=== PATIENT | female | born 1965 | race Caucasian/White ===

== ENCOUNTER → 2017-01-13 | Outpatient (CLI) | payer BC ==
[2017-01-13 13:06] LABS: Basophils % (A) 0 %; CH 25.3; Eosinophils # (A) 0.3 k/uL (0-0.7); Eosinophils % (A) 4 %; HCT 40.8 % (34.0-46.0); HDW 2.65; HGB 12.6 gm/dL (11.4-16.0); Hypochromasia Marked; Luc # (Auto) 0.12; Luc % (Auto) 2; Lymphocytes # (A) 1.8 k/uL (1.0-4.8); Lymphocytes % (A) 29 %; MCH 26.1 pg (25.0-35.0); MCHC 30.9 g/dL (31.0-37.0); MCV 84.6 fL (80.0-100.0); Mean Platelet Volume 6.2; Monocytes # (A) 0.3 k/uL (0-1.0); Monocytes % (A) 5 %; Neutrophils # (A) 3.7 k/uL (1.3-7.7); Neutrophils % (A) 60 %; RBC 4.82 m/uL (3.80-5.40); RDW 14.5 % (11.5-15.5); WBC 6.1 k/uL (3.8-10.6); WBC (Perox) 6.33
[2017-01-13 13:24] LABS: ALT 36 U/L (9-52); AST 18 U/L (14-36); Alkaline Phosphatase 92 U/L (38-126); Anion Gap 10 mmol/L; Blood Urea Nitrogen 10 mg/dL (7-17); Calcium 9.1 mg/dL (8.4-10.2); Carbon Dioxide 22 mmol/L (22-30); Chloride 108 mmol/L (98-107); Creatine Kinase 39 U/L (30-135); Glucose 91 mg/dL (74-99); Non-African American GFR(MDRD) >60 (>60 ml/min/1.73 sqM); Potassium 4.4 mmol/L (3.5-5.1); Sodium 140 mmol/L (137-145); Total Bilirubin 0.3 mg/dL (0.2-1.3); Total Protein 6.3 g/dL (6.3-8.2)
== END | disposition home or self-care (01) ==
LOC: LABWHC1 12:17
PROVIDERS: ATTEND Family Medicine
DX: R42 Dizziness and giddiness (principal); R00.2 Palpitations
CPT/HCPCS: 36415; 80053; 82550; 84439; 84443; 84484; 85025

== ENCOUNTER → 2017-01-15 | Outpatient (CLI) | payer BC ==
--- NOTE | 2017-01-15 11:22 | CT ---
EXAMINATION TYPE: CT brain wo con DATE OF EXAM: 01/15/2017 COMPARISON: NONE HISTORY: R42 dizziness Unenhanced CT of the brain was performed. The ventricles, basal cisterns and sulci overlying the cerebral convexities demonstrate mild enlargem ent. There is no evidence for intracranial hemorrhage or sulcal effacement. There is decreased attenuation about the periventricular white matter and deep white matter of both c erebral hemispheres, compatible with chronic small vessel ischemia. Differential diagnosis does inclu de demyelination. No mass effects are seen.No midline shift. Osseous calvarium is intact. If symptoms persist consider MRI. IMPRESSION: 1. Age related atrophic and chronic small vessel ischemic change without acute intracranial process s een at this time.
== END | disposition home or self-care (01) ==
LOC: RADCTMAIN 10:46
PROVIDERS: ATTEND Family Medicine
DX: I67.82 Cerebral ischemia (principal); G31.9 Degenerative disease of nervous system, unspecified
CPT/HCPCS: 70450

== ENCOUNTER → 2019-02-18 | Outpatient (CLI) | payer BC ==
--- NOTE | 2019-02-18 08:58 | US ---
EXAMINATION TYPE: US duplex aorta DATE OF EXAM: 02/18/2019 COMPARISON: NONE CLINICAL HISTORY: I71.2 THORACIC AORTIC ANEURYSM. HTN, no high cholesterol EXAM MEASUREMENTS: Abdominal Aorta: Proximal: 2.1 x 2.6 cm Mid: 1.7 x 1.9 cm Distal: 1.6 x 1.7 cm Bifurcation: Right- 1.0 x 1.2 cm Left- 1.1 x 0.9 cm No AAA visualized. Abdominal aorta visualized through bifurcation. IMPRESSION: No ultrasound evidence for AAA.
== END | disposition home or self-care (01) ==
LOC: RADUSWWP 07:35
PROVIDERS: ATTEND Family Medicine
DX: I71.2 Thoracic aortic aneurysm, without rupture (principal)
CPT/HCPCS: 93979

== ENCOUNTER → 2022-07-13 | Outpatient (CLI) | payer BC ==
--- NOTE | 2022-07-13 13:17 | CT ---
CT CHEST FOR PULMONARY EMBOLISM. EXAMINATION TYPE: CT angio chest DATE OF EXAM: 07/13/2022 INDICATION: PE CT DLP: 542.60 mGycm, Automated exposure control for dose reduction was used. CONTRAST: Patient injected with 100 ml mL of Isovue 370. COMPARISON: 07/09/2015 TECHNIQUE: CT of the chest is performed on a spiral scan at 2 mm thick sections. Study is performed with intravenous contrast timed for evaluation for pulmonary embolism. This will limit additional po rtions of the evaluation. 3-D MIP images reconstructed by the technologist are reviewed on the compu ter in the coronal and sagittal planes. FINDINGS: No persistent filling defects are evident to suggest an acute pulmonary embolism. No mediastinal or hilar adenopathy enlarged by CT criteria is evident. The ascending aorta diameter at the level of the main pulmonary artery is 4.5 cm. The main pulmonary artery diameter at the bifur cation is 3.5 cm. Lung windows are clear. Limited CT section through the upper abdomen are unremarkable. IMPRESSIONS: 1. No acute pulmonary embolism. 2. Ascending thoracic aortic aneurysm of 4.5 cm.
== END | disposition home or self-care (01) ==
LOC: RADCTMAIN 11:48
PROVIDERS: ATTEND Internal Medicine Critical Care Medicine
DX: I71.21 Aneurysm of the ascending aorta, without rupture (principal)
CPT/HCPCS: 71275; Q9967

== ENCOUNTER 2022-07-21 15:41 | Observation (INO) | payer BC ==
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
[2022-07-21 17:12] LABS: Basophils % (A) 0 %; Eosinophils # (A) 0.1 k/uL (0-0.7); Eosinophils % (A) 1 %; HCT 42.8 % (34.0-46.0); HGB 14.7 gm/dL (11.4-16.0); Lymphocytes # (A) 1.2 k/uL (1.0-4.8); Lymphocytes % (A) 14 %; MCH 30.4 pg (25.0-35.0); MCHC 34.3 g/dL (31.0-37.0); MCV 88.5 fL (80.0-100.0); Mean Platelet Volume 7.3; Monocytes # (A) 0.4 k/uL (0-1.0); Monocytes % (A) 4 %; Neutrophils # (A) 6.8 k/uL (1.3-7.7); Neutrophils % (A) 80 %; Platelet Count 194 k/uL (150-450); RBC 4.84 m/uL (3.80-5.40); RDW 13.5 % (11.5-15.5); WBC 8.5 k/uL (3.8-10.6)
[2022-07-21 17:46] LABS: Prothrombin Time 10.3 sec (9.0-12.0)
[2022-07-21 17:51] LABS: Partial Thromboplastin Time 21.5 sec (22.0-30.0)
[2022-07-21 17:52] LABS: VBG PH 7.42 (7.31-7.41)
[2022-07-21 18:16] LABS: ALT 44 U/L (4-34); African American GFR (CKD) >90 (>60 ml/min/1.73 sqM); Albumin 4.4 g/dL (3.5-5.0); Anion Gap 11 mmol/L; Blood Urea Nitrogen 20 mg/dL (7-17); Calcium 9.5 mg/dL (8.4-10.2); Carbon Dioxide 20 mmol/L (22-30); Chloride 108 mmol/L (98-107); Glucose 137 mg/dL (74-99); Non-African American GFR(CKD) >90 (>60 ml/min/1.73 sqM); Sodium 139 mmol/L (137-145); Total Bilirubin 0.6 mg/dL (0.2-1.3); Total Protein 7.1 g/dL (6.3-8.2)
[2022-07-21 18:25] LABS: AST 33 U/L (14-36); Alkaline Phosphatase 59 U/L (38-126); Potassium 4.1 mmol/L (3.5-5.1)
[2022-07-21] MEDS ORDERED: SODIUM CHLORIDE 0.9% 1,000 ML IV STA (18:29)
[2022-07-21] MEDS ORDERED: SODIUM CHLORIDE 0.9% 500 ML 500 ML IV STA (18:29)
--- NOTE | 2022-07-21 19:25 | XR ---
EXAMINATION TYPE: XR chest 2V DATE OF EXAM: 07/21/2022 COMPARISON: 06/16/2022 TECHNIQUE: PA and lateral views submitted. HISTORY: Shortness of breath FINDINGS: The lungs are clear and there is no pneumothorax, pleural effusion, or focal pneumonia. Heart size normal and no overt failure. Osseous structures demonstrate hypertrophic and degenerative changes of the spine. IMPRESSION: 1. No acute process.
[2022-07-21] MEDS ORDERED: ACETAMINOPHEN TAB 325 MG TAB PO PRN (19:38)
[2022-07-21] MEDS ORDERED: NALOXONE 0.4 MG/ML 1 ML VIAL IVP PRN (19:38)
[2022-07-21] MEDS ORDERED: IPRATROPIUM-ALBUTEROL 3 ML NEB INHALATION SCH (20:00)
[2022-07-21] MEDS ORDERED: NYSTATIN 100,000 UNIT/GM POWD 15 GM TOPICAL SCH (21:00)
[2022-07-21] MEDS: LOSARTAN 50 MG TAB PO SCH (21:04)
[2022-07-21] MEDS ORDERED: ALBUTEROL NEBULIZED 2.5 MG/3 ML INHALATION PRN (21:07)
[2022-07-21] MEDS ORDERED: IPRATROPIUM 0.5 MG/2.5 ML NEBU INHALATION PRN (21:09)
[2022-07-21] MEDS: IPRATROPIUM 0.5 MG/2.5 ML NEBU INHALATION SCH (21:22)
[2022-07-21] MEDS: ALBUTEROL NEBULIZED 2.5 MG/3 ML INHALATION SCH (21:22)
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
[2022-07-22] MEDS: HEPARIN SODIUM,PORCINE/PF 5,000 UNIT/0.5 ML SYRINGE SQ SCH ×4 (02:17→20:01)
[2022-07-22] MEDS: SYMBICORT 160-4.5 MCG INHALER INHALATION SCH ×2 (07:51→20:09)
[2022-07-22] MEDS: IPRATROPIUM 0.5 MG/2.5 ML NEBU INHALATION SCH ×3 (07:51→20:09)
[2022-07-22] MEDS: ALBUTEROL NEBULIZED 2.5 MG/3 ML INHALATION SCH ×4 (07:51→20:09)
[2022-07-22] MEDS ORDERED: IPRATROPIUM-ALBUTEROL 3 ML NEB INHALATION SCH (08:00)
[2022-07-22] MEDS ORDERED: NON FORMULARY DRUG (Fluticasone/Umeclidin/Vilanter [Trelegy Ellipta 200-62.5-25] 1 EACH Bl INHALATION SCH (08:00)
[2022-07-22] MEDS ORDERED: ENOXAPARIN 40 MG/0.4 ML SYRINGE SQ SCH (09:00)
[2022-07-22] MEDS: predniSONE 20 MG TAB PO SCH (09:18)
[2022-07-22 10:50] LABS: ABG Base Excess -0.8 mmol/L; ABG HCO3 23 mmol/L (21-25); ABG PCO2 32 mmHg (35-45); ABG PH 7.47 (7.35-7.45); ABG PO2 81 mmHg (83-108); ABG TCO2 24 mmol/L (19-24); Allen Test Performed? Yes
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
--- NOTE | 2022-07-22 13:17 | P.PN ---
Subjective Progress Note Date: 07/22/22 Hospital Course: 48-year-old female with a PMH of asthma and hypertension who presents to the emergency room with complaints of shortness of breath. EKG in the emergency room revealed sinus rhythm at 74 bpm with T-wave inversion in lead 3. Chest x-ray was unremarkable. Laboratory evaluation revealed WBC count 8.5, hemoglobin 14.7, platelets 194, sodium 139, potassium 4.1, chloride 108, CO2 20, BUN 20, creatinine 0.72, troponin less than 0.012, lactic acid 2.2. Patient admitted for possible acute asthma exacerbation versus other causes of dyspnea. Both pulmonology and cardiology has been consulted. Subjective: Patient seen and examined at bedside. No acute events overnight. Continues to feel dyspneic at rest. Denies any chest pain, palpitation, abdominal pain, nausea, vomiting, diarrhea, constipation, or urinary complaints. Pertinent positives and negatives as discussed above, a complete review of systems was performed and all other systems are negative. Vitals Signs Reviewed. General: nontoxic, no distress, appears at stated age Derm: warm, dry Head: atraumatic, normocephalic, symmetric Eyes: EOMI, no lid lag, anicteric sclera Mouth: no lip lesion, mucus membranes moist Cardiovascular: S1S2 reg, no murmur Lungs: CTA bilateral, no rhonchi, no rales , no accessory muscle use Abdominal: soft, nontender to palpation, no guarding, no appreciable organomeg benson Ext: no gross muscle atrophy, no edema, no contractures Neuro: CN II-XI grossly intact, no focal neuro deficits Psych: Alert, oriented, appropriate affect Data Reviewed Today: Pertinent Labs: Lactate 3.2, pH 7.47, pCO2 32 Assessment and Plan: Active: Dyspnea of unclear etiology History of asthma Lactic acidosis -Pulmonology note reviewed: Recommended cardiology consult with bubble study echocardiogram, 6 minute walk, ABG in room air -Cardiology note reviewed: Awaiting echo -Lactic acidosis likely type B in the setting of bronchodilators -On oral steroids 40 mg daily, continue bronchodilators Resolved: Chronic: Hypertension Morbid obesity DVT ppx: Subcu heparin Code status: Full code Anticipated discharge place: Pending clinical course Anticipated discharge time: Pending clinical course Objective - Vital Signs Vital signs: Vital Signs Temp 97.4 F L 07/22/22 07:00 Pulse 70 07/22/22 11:33 Resp 18 07/22/22 09:11 BP 111/72 07/22/22 07:00 Pulse Ox 99 07/22/22 07:51 FiO2 Intake & Output 07/21/22 07/22/22 07/22/22 18:59 06:59 18:59 Weight 138.346 kg 138.346 kg Other: # Voids 2 - Labs CBC & Chem 7: 07/21/22 16:36 07/21/22 16:36 Labs: Abnormal Lab Results - Last 24 Hours (Table) 07/21/22 07/21/22 07/21/22 Range/Units 16:36 16:36 16:36 APTT 21.5 L (22.0-30.0) sec ABG pH (7.35-7.45) ABG pCO2 (35-45) mmHg ABG pO2 (83-108) mmHg VBG pH (7.31-7.41) Chloride 108 H (98-107) mmol/L Carbon Dioxide 20 L (22-30) mmol/L BUN 20 H (7-17) mg/dL Glucose 137 H (74-99) mg/dL Plasma Lactic Acid Fei 2.2 H* (0.7-2.0) mmol/L ALT 44 H (4-34) U/L 07/21/22 07/22/22 07/22/22 Range/Units 16:36 09:34 10:34 APTT (22.0-30.0) sec ABG pH 7.47 H (7.35-7.45) ABG pCO2 32 L (35-45) mmHg ABG pO2 81 L (83-108) mmHg VBG pH 7.42 H (7.31-7.41) Chloride (98-107) mmol/L Carbon Dioxide (22-30) mmol/L BUN (7-17) mg/dL Glucose (74-99) mg/dL Plasma Lactic Acid Fei 3.2 H* (0.7-2.0) mmol/L ALT (4-34) U/L
--- NOTE | 2022-07-22 15:39 | CA ---
Transthoracic Echo Report Name: Ofelia Gaitan Age: 56 Gender: F : 1965 Exam Date: 07/22/2022 13:59 Exam Location: [facility] Ht (in): 68 Wt (lb): 305 Ordering Physician: Janneth Bess Attending/Referring Phys: Organizational Psychologist Procedure CPT: Indications: Dyspnea, normal PFT Cardiac Hx: Bubble study could not be performed Technical Quality: Poor Contrast 1: Lumason Total Dose (mL): 4 Contrast 2: Total Dose (mL): MEASUREMENTS (Male / Female) Normal Values 2D ECHO LV Diastolic Diameter PLAX 3.9 cm 4.2 - 5.9 / 3.9 - 5.3 cm LV Systolic Diameter PLAX 2.7 cm LV Fractional Shortening PLAX 30.7 % IVS Diastolic Thickness 1.2 cm 0.6 - 1.0 / 0.6 - 0.9 cm IVS Systolic Thickness 1.7 cm LVPW Diastolic Thickness 1.2 cm 0.6 - 1.0 / 0.6 - 0.9 cm LVPW Systolic Thickness 1.7 cm LV Relative Wall Thickness 0.6 RV Internal Dim ED PLAX 3.6 cm LVOT Diameter 2.0 cm LA Systolic Diameter LX 3.2 cm 3.0 - 4.0 / 2.7 - 3.8 cm LV Diastolic Volume MOD BP 69.0 cm??? 67 - 155 / 56 - 104 cm??? LV Systolic Volume MOD BP 28.7 cm??? 22 - 58 / 19 - 49 cm??? LV Ejection Fraction MOD BP 58.4 % >= 55 % LV Diastolic Volume MOD 4C 71.8 cm??? LV Systolic Volume MOD 4C 24.3 cm??? LV Ejection Fraction MOD 4C 66.1 % LV Stroke Volume MOD 4C 47.4 cm??? LV Diastolic Length 4C 7.5 cm LV Systolic Length 4C 7.6 cm LV Diastolic Volume MOD 2C 64.5 cm??? LV Systolic Volume MOD 2C 32.4 cm??? LV Ejection Fraction MOD 2C 49.7 % LV Stroke Volume MOD 2C 32.0 cm??? LV Diastolic Length 2C 7.8 cm LV Systolic Length 2C 7.2 cm LA Area 4C View 15.7 cm??? <= 20 cm??? LA Volume 47.3 cm??? 18 - 58 / 22 - 52 cm??? M-MODE Aortic Root Diameter MM 2.7 cm LA Systolic Diameter MM 5.1 cm LA Ao Ratio MM 1.9 AV Cusp Separation MM 2.0 cm DOPPLER AV Peak Velocity 160.6 cm/s AV Peak Gradient 10.3 mmHg AI Peak Velocity 150.3 cm/s AI Peak Gradient 9.0 mmHg AI Deceleration Dane 114.2 cm/s??? AI Pressure Half Time 381.7 ms LVOT Peak Velocity 132.8 cm/s LVOT Peak Gradient 7.1 mmHg AV Area Cont Eq pk 2.5 cm??? MV Deceleration Dane 422.9 cm/s??? MV Area PHT 4.6 cm??? Mitral E Point Velocity 70.3 cm/s Mitral A Point Velocity 82.8 cm/s Mitral E to A Ratio 0.8 MV Deceleration Time 166.3 ms MV E' Velocity 7.8 cm/s Mitral E to MV E' Ratio 9.0 TR Peak Velocity 139.8 cm/s TR Peak Gradient 7.8 mmHg Right Ventricular Systolic Press 12.8 mmHg PV Peak Velocity 107.6 cm/s PV Peak Gradient 4.6 mmHg FINDINGS Left Ventricle Left ventricular ejection fraction is estimated at 55-60 %. Grade 1 diastolic dysfunction. Normal basal systolic function. Right Ventricle Normal right ventricular size and function. Right Atrium Normal right atrial size. Left Atrium Normal left atrial size. Mitral Valve Structurally normal mitral valve. Trace to mild mitral regurgitation. Aortic Valve Trileaflet aortic valve. Trace to mild aortic regurgitation. Tricuspid Valve Mild tricuspid regurgitation. Pulmonic Valve Pulmonic valve not well visualized. Pericardium Normal pericardium. Echo free space anterior to the right ventricle likely represents a fat pad. Aorta Normal size aortic root and proximal ascending aorta. CONCLUSIONS Normal LV systolic function Mild tricuspid regurgitation Previewed by: Dr. Galileo Pérez MD (Electronically Signed) Final Date: 22 July 2022 15:39
[2022-07-22] MEDS: LOSARTAN 50 MG TAB PO SCH (20:01)
[2022-07-23 07:41] VITALS: BP 131/77; RESP 18; TEMP 97.9
[2022-07-23] MEDS: ALBUTEROL NEBULIZED 2.5 MG/3 ML INHALATION SCH ×2 (07:43→11:29)
[2022-07-23] MEDS: SYMBICORT 160-4.5 MCG INHALER INHALATION SCH (07:43)
[2022-07-23] MEDS: IPRATROPIUM 0.5 MG/2.5 ML NEBU INHALATION SCH ×2 (07:43→11:29)
[2022-07-23 08:03] VITALS: PULSE 68
[2022-07-23 08:14] LABS: African American GFR (CKD) >90 (>60 ml/min/1.73 sqM); Anion Gap 6 mmol/L; Blood Urea Nitrogen 16 mg/dL (7-17); Calcium 8.9 mg/dL (8.4-10.2); Carbon Dioxide 26 mmol/L (22-30); Chloride 109 mmol/L (98-107); Glucose 81 mg/dL (74-99); Non-African American GFR(CKD) >90 (>60 ml/min/1.73 sqM); Sodium 141 mmol/L (137-145)
[2022-07-23] MEDS: predniSONE 20 MG TAB PO SCH (09:17)
[2022-07-23] MEDS: HEPARIN SODIUM,PORCINE/PF 5,000 UNIT/0.5 ML SYRINGE SQ SCH (09:18)
--- NOTE | 2022-07-23 10:29 | P.PN ---
Subjective Progress Note Date: 07/23/22 This is a very pleasant 56-year-old female patient with a known history of obesity, gastroesophageal reflux disease, hypertension, mild intermittent chronic bronchial asthma and is maintained on Trelegy and albuterol in the outpatient setting. She follows with Dr. Lyman in the office. Pulmonary function testing did not reveal any significant obstructive airway disease. However, the patient has been having increasing shortness of breath with minimal exertion. CT angiogram from 07/13/2022 revealed no evidence of pulmonary embolism. She is noted to have an ascending thoracic aortic aneurysm measuring 4.5 cm being followed by her PCP. He presented here to the emergency room last evening with ongoing shortness of breath with no improvement from inhalers or her breathing treatments. Chest x-ray shows no acute pulmonary process. D- dimer less than 0.17. White count 8.5. Hemoglobin 14.7. Platelets 194. Sodium 139. Potassium 4.1. Bicarb 20. BUN 20. Creatinine 0.72. Glucose 137. ProBNP 66. Troponin negative 1. She's been initiated on Symbicort, albuterol, prednisone taper. Heparin for DVT prophylaxis. The patient is seen today the 2022 in follow-up on the regular medical floor. She is up ambulating in her room. Awake and alert in no acute distress. Maintaining good O2 saturations in the 90s on room air. Echocardiogram revealed preserved left ventricular systolic function no significant valvular abnormalities. She was able to do a 6 minute walk without significant desaturations. Blood gases reveal a pO2 of 81, pCO2 32, pH 7.47. Sodium 141. Potassium 4.0. By 26. BUN 16. Creatinine 0.74. She is continued on Symbicort, albuterol, prednisone taper. Heparin for DVT prophylaxis. Objective - Vital Signs Vital signs: Vital Signs Temp 97.9 F 07/23/22 07:00 Pulse 68 07/23/22 08:02 Resp 18 07/23/22 07:00 BP 131/77 07/23/22 07:00 Pulse Ox 98 07/23/22 07:45 FiO2 Intake & Output 07/22/22 07/23/22 07/23/22 18:59 06:59 18:59 Intake Total 180 Balance 180 Intake: Oral 180 Other: # Voids 3 1 - Exam GENERAL EXAM: Alert, active, pleasant 56-year-old female, on room air, comfortable in no apparent distress. HEAD: Normocephalic. EYES: Normal reaction of pupils, equal size. NOSE: Clear with pink turbinates. THROAT: No erythema or exudates. NECK: No masses, no JVD. CHEST: No chest wall deformity. LUNGS: Equal air entry with no crackles, wheeze, rhonchi or dullness. CVS: S1 and S2 normal with no audible murmur, regular rhythm. ABDOMEN: No hepatosplenomegaly, normal bowel sounds, no guarding or rigidity. SPINE: No scoliosis or deformity SKIN: No rashes CENTRAL NERVOUS SYSTEM: No focal deficits, tone is normal in all 4 extremities. EXTREMITIES: There is no peripheral edema. No clubbing, no cyanosis. Peripheral pulses are intact. - Labs CBC & Chem 7: 07/21/22 16:36 07/23/22 07:20 Labs: Abnormal Lab Results - Last 24 Hours (Table) 07/22/22 07/22/22 07/22/22 Range/Units 10:34 13:14 16:11 ABG pH 7.47 H (7.35-7.45) ABG pCO2 32 L (35-45) mmHg ABG pO2 81 L (83-108) mmHg Chloride (98-107) mmol/L Plasma Lactic Acid Fei 2.2 H* 3.0 H* (0.7-2.0) mmol/L 07/23/22 Range/Units 07:20 ABG pH (7.35-7.45) ABG pCO2 (35-45) mmHg ABG pO2 (83-108) mmHg Chloride 109 H (98-107) mmol/L Plasma Lactic Acid Fei (0.7-2.0) mmol/L Assessment and Plan Assessment: Dyspnea on exertion of unclear etiology. Pulmonary function testing revealed no evidence of significant obstructive lung disease. Recent CT angiogram ruled out pulmonary embolism. Chest x-ray reveals no acute pulmonary process. Maintaining O2 saturations up to 99% on room air. 6 minute walk test did not reveal any evidence of desaturations. ABGs reviewed. Echocardiogram revealed preserved left ventricular systolic function. No valvular abnormalities. History of mild intermittent chronic bronchial asthma, again PFTs do not reveal any significant obstructive disease. Maintained on Trelegy and albuterol in the outpatient setting Morbid obesity with a BMI of 46.4 kg per metered square, on Ozempic Hypertension Lifelong nonsmoker Plan: The patient was seen and evaluated Echocardiogram, ABGs, 6 minute walk, medications and labs reviewed Patient testing was all within normal limits and no significant abnormalities She is educated regarding the importance of weight loss She is educated regarding the importance of increasing her exercise tolerance She is educated regarding avoiding steroids unless prescribed by her pulmono logist Cleared for discharge from the pulmonary standpoint Follow up with Dr. Lyman in the office in 1 week I have personally seen and examined the patient, performed the documentation and the assessment and plan as written. Number of minutes spent on the visit: 10.
--- NOTE | 2022-07-23 12:44 | P.PN ---
Subjective Progress Note Date: 07/23/22 Patient seen resting comfortably in the bedside chair in no signs of acute distress. Troponins negative 2. Patient underwent a 2-D echocardiogram which showed a normal LV function with mild tricuspid regurgitation. She denies any episodes of chest pain. She still has increased dyspnea on exertion. Patient seen by Dr. Palacios who is signed off on the case and will follow-up with her outpatient. Will obtain a dobutamine stress echo tomorrow to rule out further cardiac causes. Objective - Vital Signs Vital signs: Vital Signs Temp 97.9 F 07/23/22 07:00 Pulse 68 07/23/22 08:02 Resp 18 07/23/22 09:17 BP 131/77 07/23/22 07:00 Pulse Ox 98 07/23/22 07:45 FiO2 Intake & Output 07/22/22 07/23/22 07/23/22 18:59 06:59 18:59 Intake Total 180 Balance 180 Intake: Oral 180 Other: # Voids 3 1 - Exam PHYSICAL EXAM: VITAL SIGNS: Reviewed. GENERAL: Well-developed in no acute distress. HEENT: Head is normocephalic. Pupils are equal, round. Sclerae anicteric. Mucous membranes of the mouth are moist. NECK: Supple. No JVD or thyromegaly RESPIRATORY: Respirations even and unlabored. Lungs diminished to auscultation bilaterally. CARDIO: Regular rate and rhythm. S1 and S2 heard. No murmur or gallops. EXTREMITIES: Normal range of motion. No clubbing or cyanosis. Peripheral pulses intact. Negative for bilateral lower extremity edema NEURO: Orientated to person, time, mood is appropriate - Labs CBC & Chem 7: 07/21/22 16:36 07/23/22 07:20 Labs: Abnormal Lab Results - Last 24 Hours (Table) 07/22/22 07/22/22 07/23/22 Range/Units 13:14 16:11 07:20 Chloride 109 H (98-107) mmol/L Plasma Lactic Acid Fei 2.2 H* 3.0 H* (0.7-2.0) mmol/L Assessment and Plan Assessment: Dyspnea on exertion of unclear etiology rule out ACS Hypertension Asthma Plan: Patient will undergo a dobutamine stress echo tomorrow Continue with all current cardiac medications Continue with telemetry monitoring Further recommendations based on clinical course The above impression and plan of care have been discussed and directed by the signing physician. Carmen Grey, nurse practitioner, acting as scribe for signing physician.
--- NOTE | 2022-07-23 13:15 | P.DS ---
Providers Date of admission: 07/21/22 19:38 Expected date of discharge: 07/23/22 Attending physician: Navid Enriquez MD Consults: 07/21/22 22:49 Consult Physician Urgent Consulting Provider: Gera Lyman Consult Reason/Comments: asthma Do you want consulting provider notified?: Yes 07/22/22 09:13 Consult Physician Routine Consulting Provider: Galileo Pérez Consult Reason/Comments: Dyspnea on exertion, normal PFT, normal CTA Do you want consulting provider notified?: Yes Primary care physician: Chip Duncan [facility] Course: Discharge Diagnosis: Dyspnea of unclear etiology History of asthma Lactic acidosis Hypertension Morbid obesity Hospital Course: 48-year-old female with a PMH of asthma and hypertension who presents to the emergency room with complaints of shortness of breath. EKG in the emergency room revealed sinus rhythm at 74 bpm with T-wave inversion in lead 3. Chest x-ray was unremarkable. Laboratory evaluation revealed WBC count 8.5, hemoglobin 14.7, platelets 194, sodium 139, potassium 4.1, chloride 108, CO2 20, BUN 20, creatinine 0.72, troponin less than 0.012, lactic acid 2.2. Patient admitted for possible acute asthma exacerbation versus other causes of dyspnea. Both pulmonology and cardiology has been consulted. Echocardiogram shows normal LV systolic function, mild TR. Patient to follow-up with pulmonology and ca rdiology as an outpatient. She needs further workup with stress test. Patient seen and examined at bedside. Vital signs reviewed and stable. General: nontoxic, no distress, appears at stated age Derm: warm, dry Head: atraumatic, normocephalic, symmetric Eyes: EOMI, no lid lag, anicteric sclera Mouth: no lip lesion, mucus membranes moist Cardiovascular: S1S2 reg, no murmur Lungs: CTA bilateral, no rhonchi, no rales , no accessory muscle use Abdominal: soft, nontender to palpation, no guarding, no appreciable organomegaly Ext: no gross muscle atrophy, no edema, no contractures Neuro: CN II-XI grossly intact, no focal neuro deficits Psych: Alert, oriented, appropriate affect A total of 33 minutes of time were spent preparing this complex discharge summary. Patient was discharged on 07/23/22 at 12:40. Patient Condition at Discharge: Stable Plan - Discharge Summary New Discharge Prescriptions: Continue Olmesartan Medoxomil [Benicar] 40 mg PO HS Diclofenac Sodium [Voltaren] 75 mg PO BID Semaglutide [Ozempic] 0.5 mg SQ WE Albuterol Sulfate [Albuterol Sulfate Hfa] 2 puff INHALATION RT-Q6H PRN PRN Reason: Shortness Of Breath predniSONE See Taper PO DAILY Ipratropium-Albuterol Nebulize [Duoneb 0.5 mg-3 mg/3 ml Soln] 3 ml INHALATION RT-QID Fluticasone/Umeclidin/Vilanter [Trelegy Ellipta 200-62.5-25] 1 puff INHALATION RT-DAILY Discharge Medication List Olmesartan Medoxomil [Benicar] 40 mg PO HS 07/15/15 [History] Albuterol Sulfate [Albuterol Sulfate Hfa] 2 puff INHALATION RT-Q6H PRN 06/16/22 [History] Diclofenac Sodium [Voltaren] 75 mg PO BID 06/16/22 [History] Fluticasone/Umeclidin/Vilanter [Trelegy Ellipta 200-62.5-25] 1 puff INHALATION RT-DAILY 07/21/22 [History] Ipratropium-Albuterol Nebulize [Duoneb 0.5 mg-3 mg/3 ml Soln] 3 ml INHALATION RT-QID 07/21/22 [History] Semaglutide [Ozempic] 0.5 mg SQ WE 07/21/22 [History] predniSONE See Taper PO DAILY 07/21/22 [History] Follow up Appointment(s)/Referral(s): Shira Palacios MD [STAFF PHYSICIAN] - 1 Week (Patient to make follow up appointment ) Chip Horvath MD [Primary Care Provider] - 1-2 days Galileo Pérez MD [STAFF PHYSICIAN] - 1 Week (patient to call and make follow up appointment ) Patient Instructions/Handouts: Dyspnea (DC) Activity/Diet/Wound Care/Special Instructions: Please see pulmonology and cardiology for further work up for shortness of breath. You will likely need a stress test by cardiology. Discharge Disposition: HOME SELF-CARE
[2022-07-24] MEDS ORDERED: DOBUTamine DRIP for NUC MED 500 MG in DEXTROSE/WATER 1 250ML.BAG IV PRN (06:00)
[2022-07-24] MEDS ORDERED: predniSONE 20 MG TAB PO SCH (09:00)
[2022-07-26] MEDS ORDERED: PATIENT'S OWN (Semaglutide [Ozempic] 0.25 MG/0.2 ML Each) SQ SCH (09:00)
== END 2022-07-23 14:01 | disposition home or self-care (01) ==
LOC: EC 15:41 → 6NMEDSUR 19:38
PROVIDERS: ADMIT Internal Medicine; ATTEND Internal Medicine
DX: R06.02 Shortness of breath (principal); R06.00 Dyspnea, unspecified; J45.909 Unspecified asthma, uncomplicated; E87.20 Acidosis, unspecified; I10 Essential (primary) hypertension; E66.01 Morbid (severe) obesity due to excess calories; Z68.42 Body mass index [BMI] 45.0-49.9, adult; K21.9 Gastro-esophageal reflux disease without esophagitis; I71.20 Thoracic aortic aneurysm, without rupture, unspecified; Z87.01 Personal history of pneumonia (recurrent); E16.2 Hypoglycemia, unspecified; M41.9 Scoliosis, unspecified; Z87.820 Personal history of traumatic brain injury; E03.9 Hypothyroidism, unspecified; Z98.891 History of uterine scar from previous surgery; Z90.49 Acquired absence of other specified parts of digestive tract; Z98.890 Other specified postprocedural states; Z82.49 Family history of ischemic heart disease and other diseases of the circulatory system; Z83.79 Family history of other diseases of the digestive system; Z79.51 Long term (current) use of inhaled steroids; Z79.899 Other long term (current) drug therapy; Z88.8 Allergy status to other drugs, medicaments and biological substances
CPT/HCPCS: 96361 ×2; 96372; 96360; 99285; 36415; 94640 ×5; 36600; 94760 ×2; 93005; 93306 ×2; 85379; 83880; 80053; 80048; 82805; 82803; 83605 ×2; 83735; 84484 ×2; 85025; 85610; 85730; 71046; G0378 ×3; J7512 ×2; Q9950; J1644

== ENCOUNTER 2023-04-28 14:45 | Inpatient (IN) | payer BC ==
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
[2023-04-28] MEDS ORDERED: IPRATROPIUM-ALBUTEROL 3 ML NEB INHALATION STA (16:11)
[2023-04-28] MEDS ORDERED: methylPREDNISolone SOD SUCCI 125 MG/2 ML VIAL IV STA (16:12)
[2023-04-28 16:43] LABS: Basophils % (A) 0 %; Eosinophils % (A) 0 %; HCT 42.9 % (34.0-46.0); HGB 14.8 gm/dL (11.4-16.0); Lymphocytes # (A) 1.2 k/uL (1.0-4.8); Lymphocytes % (A) 14 %; MCH 31.4 pg (25.0-35.0); MCHC 34.6 g/dL (31.0-37.0); Mean Platelet Volume 7.8; Monocytes # (A) 0.3 k/uL (0-1.0); Monocytes % (A) 3 %; Neutrophils % (A) 82 %; Platelet Count 163 k/uL (150-450); RBC 4.71 m/uL (3.80-5.40); RDW 12.6 % (11.5-15.5); WBC 8.5 k/uL (3.8-10.6)
[2023-04-28 17:08] LABS: INR 0.9 (<1.2); Prothrombin Time 10.1 sec (10.0-12.5)
[2023-04-28 17:13] LABS: Partial Thromboplastin Time 19.9 sec (22.0-30.0)
[2023-04-28 17:36] LABS: ALT 79 U/L (4-34); AST 35 U/L (14-36); African American GFR (CKD) 85 (>60 ml/min/1.73 sqM); Albumin 4.1 g/dL (3.5-5.0); Alkaline Phosphatase 84 U/L (38-126); Anion Gap 15 mmol/L; Blood Urea Nitrogen 18 mg/dL (7-17); Calcium 9.5 mg/dL (8.4-10.2); Carbon Dioxide 16 mmol/L (22-30); Chloride 108 mmol/L (98-107); Glucose 200 mg/dL (74-99); Non-African American GFR(CKD) 73 (>60 ml/min/1.73 sqM); Sodium 139 mmol/L (137-145); Total Bilirubin 0.5 mg/dL (0.2-1.3); Total Protein 6.5 g/dL (6.3-8.2)
[2023-04-28 17:45] LABS: NT-Pro-B-Type Natriuretic Pept 132 pg/mL
[2023-04-28] MEDS ORDERED: NALOXONE 0.4 MG/ML 1 ML VIAL IV PRN (17:56)
--- NOTE | 2023-04-28 18:03 | XR ---
EXAMINATION TYPE: XR chest 2V DATE OF EXAM: 04/28/2023 COMPARISON: 07/21/2022 INDICATION: Difficulty breathing decrease in short of breath TECHNIQUE: Frontal and lateral views of the chest are obtained. FINDINGS: The heart size is normal. The pulmonary vasculature is normal. The lungs are clear. IMPRESSION: 1. No acute pulmonary process radiographically apparent.
[2023-04-28] MEDS: IPRATROPIUM-ALBUTEROL 3 ML NEB INHALATION STA ×2 (22:12→22:13)
[2023-04-28] MEDS: IPRATROPIUM-ALBUTEROL 3 ML NEB INHALATION PRN (23:56)
[2023-04-29] MEDS ORDERED: ALBUTEROL NEBULIZED 2.5 MG/3 ML INHALATION SCH
[2023-04-29 00:05] LABS: ABG Base Excess -2.8 mmol/L; ABG HCO3 19 mmol/L (21-25); ABG Oxygen Saturation 97.8 % (94-97); ABG PCO2 21 mmHg (35-45); ABG PO2 109 mmHg (83-108); ABG TCO2 20 mmol/L (19-24); Allen Test Performed? Yes
[2023-04-29 00:14] LABS: ABG PH 7.57 (7.35-7.45)
[2023-04-29] MEDS: methylPREDNISolone SOD SUCCI 125 MG/2 ML VIAL IV SCH ×5 (00:32→23:23)
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
[2023-04-29] MEDS: MAGNESIUM SULFATE-D5W PMX 1 GM in DEXTROSE/WATER 1 100ML.BAG IVPB SCH ×2 (02:34→04:31)
[2023-04-29] MEDS: IPRATROPIUM-ALBUTEROL 3 ML NEB INHALATION PRN (04:18)
[2023-04-29 06:37] LABS: Glucose,Whole Blood 164 mg/dL (70-110)
[2023-04-29] MEDS ORDERED: SYMBICORT 80-4.5 MCG INHALER INHALATION SCH (08:00)
[2023-04-29] MEDS: IPRATROPIUM-ALBUTEROL 3 ML NEB INHALATION SCH ×4 (08:21→19:59)
[2023-04-29 09:04] LABS: Glucose,Whole Blood 153 mg/dL (70-110)
[2023-04-29] MEDS: INSULIN ASPART (NovoLOG) 100 UNIT/ML VIAL SQ SCH ×4 (09:07→21:38)
[2023-04-29 11:29] LABS: Basophils % (A) 0 %; Eosinophils % (A) 0 %; HCT 42.1 % (34.0-46.0); HGB 14.4 gm/dL (11.4-16.0); Lymphocytes % (A) 9 %; MCH 31.1 pg (25.0-35.0); MCHC 34.1 g/dL (31.0-37.0); MCV 91.2 fL (80.0-100.0); Mean Platelet Volume 8.3; Monocytes # (A) 0.2 k/uL (0-1.0); Monocytes % (A) 2 %; Neutrophils % (A) 89 %; Platelet Count 166 k/uL (150-450); RBC 4.61 m/uL (3.80-5.40); RDW 12.5 % (11.5-15.5); WBC 11.3 k/uL (3.8-10.6)
[2023-04-29 12:01] LABS: AST 22 U/L (14-36); African American GFR (CKD) >90 (>60 ml/min/1.73 sqM); Albumin/Globulin Ratio 1.7; Alkaline Phosphatase 77 U/L (38-126); Anion Gap 14 mmol/L; Blood Urea Nitrogen 16 mg/dL (7-17); Calcium 9.2 mg/dL (8.4-10.2); Carbon Dioxide 21 mmol/L (22-30); Chloride 104 mmol/L (98-107); Globulin 2.3 g/dL; Glucose 209 mg/dL (74-99); Non-African American GFR(CKD) >90 (>60 ml/min/1.73 sqM); Potassium 3.8 mmol/L (3.5-5.1); Sodium 139 mmol/L (137-145); Total Bilirubin 0.5 mg/dL (0.2-1.3); Total Protein 6.3 g/dL (6.3-8.2)
[2023-04-29 12:06] LABS: ALT 47 U/L (4-34)
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
[2023-04-29 12:46] LABS: Glucose,Whole Blood 199 mg/dL (70-110)
--- NOTE | 2023-04-29 13:08 | P.PN ---
Subjective Progress Note Date: 04/29/23 Hospital Course: 57-year-old female with a PMH of asthma and hypertension who presents to the emergency room with complaint of shortness of breath and nonproductive cough. In the emergency room a chest x-ray was unremarkable. EKG reveals sinus rhythm at 72 bpm with T-wave inversion in lead [address]/T-wave changes. Laboratory evaluation was remarkable for CO2 16, BUN 18, glucose 200, and troponin less than 0.012. Patient being admitted for acute asthma exacerbation, started on bronchodilators and IV steroids, pulmonology consulted. Subjective: Patient seen and examined at bedside. No acute events overnight. Pertinent positives and negatives as discussed above, a complete review of systems was performed and all other systems are negative. Vitals Signs Reviewed. General: nontoxic, in mild respiratory distress, appears at stated age, obese Derm: warm, dry Head: atraumatic, normocephalic, symmetric Eyes: EOMI, no lid lag, anicteric sclera Mouth: no lip lesion, mucus membranes moist Cardiovascular: S1S2 reg, no murmur Lungs: CTA bilateral, no rhonchi, no rales , no accessory muscle use, supplemental oxygen Abdominal: soft, nontender to palpation, no guarding, no appreciable organomegaly Ext: no gross muscle atrophy, no edema, no contractures Neuro: CN II-XI grossly intact, no focal neuro deficits Psych: Alert, oriented, appropriate affect Data Reviewed Today: Pertinent Labs: WBC 11.3, hemoglobin 14.4, bicarb 21, blood sugars range between 153 05/18/2008 Imaging: No new imaging Assessment and Plan: Acute asthma exacerbation -DuoNeb scheduled and as needed, on Pulmicort twice a day, Perforomist twice a day -IV Solu-Medrol 60 every 6 hours, monitor blood sugars and mentation -Pulmonology note reviewed, continue bronchodilators and steroids, may need bronchoscopy if no improvement Hyperglycemia -A1c pending -Sliding scale insulin, monitor for hypoglycemia Hypertension -Continue losartan 150 mg DVT ppx: Lovenox Code status: Full code Anticipated discharge place: Pending clinical course Anticipated discharge time: Pending clinical course Objective - Vital Signs Vital signs: Vital Signs Temp 96.8 F L 04/29/23 00:48 Pulse 81 04/29/23 11:51 Resp 18 04/29/23 04:34 BP 136/65 04/29/23 04:34 Pulse Ox 100 04/29/23 08:24 FiO2 Intake & Output 04/28/23 04/29/23 04/29/23 18:59 06:59 18:59 Weight 131.542 kg 131.542 kg Other: Voiding Method Toilet # Voids 1 - Labs CBC & Chem 7: 04/29/23 09:50 04/29/23 09:50 Labs: Abnormal Lab Results - Last 24 Hours (Table) 04/28/23 04/28/23 04/29/23 Range/Units 16:30 16:30 00:00 WBC (3.8-10.6) k/uL Neutrophils # (1.3-7.7) k/uL APTT 19.9 L (22.0-30.0) sec ABG pH 7.57 H* (7.35-7.45) ABG pCO2 21 L (35-45) mmHg ABG pO2 109 H (83-108) mmHg ABG HCO3 19 L (21-25) mmol/L ABG O2 Saturation 97.8 H (94-97) % Chloride 108 H (98-107) mmol/L Carbon Dioxide 16 L (22-30) mmol/L BUN 18 H (7-17) mg/dL Glucose 200 H (74-99) mg/dL POC Glucose (mg/dL) (70-110) mg/dL ALT 79 H (4-34) U/L 04/29/23 04/29/23 04/29/23 Range/Units 06:35 09:02 09:50 WBC 11.3 H (3.8-10.6) k/uL Neutrophils # 10.0 H (1.3-7.7) k/uL APTT (22.0-30.0) sec ABG pH (7.35-7.45) ABG pCO2 (35-45) mmHg ABG pO2 (83-108) mmHg ABG HCO3 (21-25) mmol/L ABG O2 Saturation (94-97) % Chloride (98-107) mmol/L Carbon Dioxide (22-30) mmol/L BUN (7-17) mg/dL Glucose (74-99) mg/dL POC Glucose (mg/dL) 164 H 153 H (70-110) mg/dL ALT (4-34) U/L 04/29/23 04/29/23 Range/Units 09:50 12:44 WBC (3.8-10.6) k/uL Neutrophils # (1.3-7.7) k/uL APTT (22.0-30.0) sec ABG pH (7.35-7.45) ABG pCO2 (35-45) mmHg ABG pO2 (83-108) mmHg ABG HCO3 (21-25) mmol/L ABG O2 Saturation (94-97) % Chloride (98-107) mmol/L Carbon Dioxide 21 L (22-30) mmol/L BUN (7-17) mg/dL Glucose 209 H (74-99) mg/dL POC Glucose (mg/dL) 199 H (70-110) mg/dL ALT 47 H (4-34) U/L
[2023-04-29 18:03] LABS: Glucose,Whole Blood 156 mg/dL (70-110)
[2023-04-29] MEDS: FORMOTEROL FUMARATE 20 MCG/2 ML NEBU INHALATION SCH (19:59)
[2023-04-29] MEDS: BUDESONIDE 1 MG/2 ML NEBU INHALATION SCH (19:59)
[2023-04-29 21:26] LABS: Glucose,Whole Blood 215 mg/dL (70-110)
[2023-04-29] MEDS: LOSARTAN 50 MG TAB PO SCH (21:40)
[2023-04-30] MEDS: IPRATROPIUM-ALBUTEROL 3 ML NEB INHALATION PRN ×2 (00:33→04:26)
[2023-04-30] MEDS: methylPREDNISolone SOD SUCCI 125 MG/2 ML VIAL IV SCH ×4 (05:50→22:30)
[2023-04-30] MEDS: INSULIN ASPART (NovoLOG) 100 UNIT/ML VIAL SQ SCH ×4 (08:14→22:30)
[2023-04-30 08:15] LABS: Glucose,Whole Blood 142 mg/dL (70-110)
[2023-04-30] MEDS: IPRATROPIUM-ALBUTEROL 3 ML NEB INHALATION SCH ×4 (08:50→21:21)
[2023-04-30] MEDS: FORMOTEROL FUMARATE 20 MCG/2 ML NEBU INHALATION SCH ×2 (08:50→21:22)
[2023-04-30] MEDS: BUDESONIDE 1 MG/2 ML NEBU INHALATION SCH ×2 (08:51→21:21)
[2023-04-30] MEDS: ENOXAPARIN 40 MG/0.4 ML SYRINGE SQ SCH (09:00)
--- NOTE | 2023-04-30 09:35 | P.PN ---
Subjective Progress Note Date: 04/30/23 On 04/30/2023, I'm seeing the patient in the emergency. The patient is hospitalized however she doesn't have a hospital bed yet. She was admitted for acute asthma exacerbation. She has severe persistent bronchial asthma and she has been maintained on Trelegy Ellipta on outpatient basis. She failed out patient therapy and she ended up in the hospital. She came into the emergency department approximately 48 hours ago. No chills. No fever. No leukocytosis. She is currently on room air oxygen. She continues to be bronchospastic and wheezy and she continues to have a congestive cough, unable to bring up much of sputum. I reviewed her labs. Nothing significant. Pro-calcitonin level has been low and the chest x-ray is not showing any acute abnormalities. Objective - Vital Signs Vital signs: Vital Signs Temp 97.1 F L 04/30/23 09:02 Pulse 71 04/30/23 09:16 Resp 18 04/30/23 09:02 BP 120/62 04/30/23 09:02 Pulse Ox 95 04/30/23 09:02 FiO2 - Exam GENERAL EXAM: Alert, active, pleasant 57-year-old female, on room air, comfortable in no apparent distress. HEAD: Normocephalic. EYES: Normal reaction of pupils, equal size. NOSE: Clear with pink turbinates. THROAT: No erythema or exudates. NECK: No masses, no JVD. CHEST: No chest wall deformity. LUNGS: Equal air entry with no crackles, wheeze, rhonchi or dullness. CVS: S1 and S2 normal with no audible murmur, regular rhythm. ABDOMEN: No hepatosplenomegaly, normal bowel sounds, no guarding or rigidity. SPINE: No scoliosis or deformity SKIN: No rashes CENTRAL NERVOUS SYSTEM: No focal deficits, tone is normal in all 4 extremities. EXTREMITIES: There is no peripheral edema. No clubbing, no cyanosis. Periphe ral pulses are intact. - Labs CBC & Chem 7: 04/29/23 09:50 04/29/23 09:50 Labs: Abnormal Lab Results - Last 24 Hours (Table) 04/29/23 04/29/23 04/29/23 Range/Units 09:50 09:50 12:44 WBC 11.3 H (3.8-10.6) k/uL Neutrophils # 10.0 H (1.3-7.7) k/uL Carbon Dioxide 21 L (22-30) mmol/L Glucose 209 H (74-99) mg/dL POC Glucose (mg/dL) 199 H (70-110) mg/dL ALT 47 H (4-34) U/L 04/29/23 04/29/23 04/30/23 Range/Units 18:02 21:15 08:14 WBC (3.8-10.6) k/uL Neutrophils # (1.3-7.7) k/uL Carbon Dioxide (22-30) mmol/L Glucose (74-99) mg/dL POC Glucose (mg/dL) 156 H 215 H 142 H (70-110) mg/dL ALT (4-34) U/L Assessment and Plan Plan: Severe persistent bronchial asthma with previous hospitalizations for the same. The patient is coming in with an acute bronchitis and asthma exacerbation. Note that her chest x-ray is clear. No significant leukocytosis. Pro-calcitonin level is nonelevated. She is a nonsmoker. She has limited on Trelegy Ellipta on outpatient basis. She has failed systemic steroids and she ended up in a hospital. Shortness of breath secondary to above Cough chest that is obese secondary to above Hypertension Lifetime nonsmoker Body mass index of 46.4 Covid 19 infection back in January 2023 and a repeat viral screen came back negative for influenza, Covid 19 and RSV. Plan Clinically improving and we'll continue same treatment. Continue DuoNeb updrafts Continue performance on Pulmicort updrafts Continue IV Solu-Medrol Lovenox for DVT prophylaxis May be a good candidate for biologic on outpatient basis and should be considered for either Dupixent or Fasenra and this needs to be discussed with a certified master locksmith once she leaves the hospital.
[2023-04-30 12:19] LABS: Glucose,Whole Blood 213 mg/dL (70-110)
--- NOTE | 2023-04-30 14:40 | P.PN ---
Subjective Progress Note Date: 04/30/23 Hospital Course: 57-year-old female with a PMH of asthma and hypertension who presents to the emergency room with complaint of shortness of breath and nonproductive cough. In the emergency room a chest x-ray was unremarkable. EKG reveals sinus rhythm at 72 bpm with T-wave inversion in lead [address]/T-wave changes. Laboratory evaluation was remarkable for CO2 16, BUN 18, glucose 200, and troponin less than 0.012. Patient being admitted for acute asthma exacerbation, started on bronchodilators and IV steroids, pulmonology consulted. Subjective: Patient seen and examined at bedside. No acute events overnight. Pertinent positives and negatives as discussed above, a complete review of systems was performed and all other systems are negative. Vitals Signs Reviewed. General: nontoxic, in mild respiratory distress, appears at stated age, obese Derm: warm, dry Head: atraumatic, normocephalic, symmetric Eyes: EOMI, no lid lag, anicteric sclera Mouth: no lip lesion, mucus membranes moist Cardiovascular: S1S2 reg, no murmur Lungs: CTA bilateral, no rhonchi, no rales , no accessory muscle use Abdominal: soft, nontender to palpation, no guarding, no appreciable organomegaly Ext: no gross muscle atrophy, no edema, no contractures Neuro: CN II-XI grossly intact, no focal neuro deficits Psych: Alert, oriented, appropriate affect Data Reviewed Today: Pertinent Labs: Blood sugars range between 140-215, A1c 5.6 Imaging: No new imaging Assessment and Plan: Acute asthma exacerbation Acute hypoxic respiratory failure, resolved -DuoNeb scheduled and as needed, on Pulmicort twice a day, Perforomist twice a day -IV Solu-Medrol 60 every 6 hours, monitor blood sugars and mentation -Pulmonology note reviewed, continue current management, likely need Biologics as outpatient. Hyperglycemia, steroid induced -Sliding scale insulin, monitor for hypoglycemia Hypertension -Continue losartan 150 mg DVT ppx: Lovenox Code status: Full code Anticipated discharge place: home Anticipated discharge time: likely tomorrow Objective - Vital Signs Vital signs: Vital Signs Temp 97.1 F L 04/30/23 09:02 Pulse 72 04/30/23 12:31 Resp 18 04/30/23 09:02 BP 120/62 04/30/23 09:02 Pulse Ox 95 04/30/23 09:02 FiO2 - Labs CBC & Chem 7: 04/29/23 09:50 04/29/23 09:50 Labs: Abnormal Lab Results - Last 24 Hours (Table) 04/29/23 04/29/23 04/30/23 Range/Units 18:02 21:15 08:14 POC Glucose (mg/dL) 156 H 215 H 142 H (70-110) mg/dL 04/30/23 Range/Units 12:18 POC Glucose (mg/dL) 213 H (70-110) mg/dL
[2023-04-30 17:46] LABS: Glucose,Whole Blood 159 mg/dL (70-110)
[2023-04-30 22:16] LABS: Glucose,Whole Blood 164 mg/dL (70-110)
[2023-04-30] MEDS: LOSARTAN 50 MG TAB PO SCH (22:30)
[2023-05-01] MEDS: IPRATROPIUM-ALBUTEROL 3 ML NEB INHALATION PRN (04:02)
[2023-05-01] MEDS: methylPREDNISolone SOD SUCCI 125 MG/2 ML VIAL IV SCH ×4 (05:39→22:10)
[2023-05-01] MEDS: INSULIN ASPART (NovoLOG) 100 UNIT/ML VIAL SQ SCH ×4 (05:44→22:10)
[2023-05-01 06:23] LABS: Glucose,Whole Blood 163 mg/dL (70-110)
[2023-05-01] MEDS: BUDESONIDE 1 MG/2 ML NEBU INHALATION SCH ×2 (08:38→20:04)
[2023-05-01] MEDS: IPRATROPIUM-ALBUTEROL 3 ML NEB INHALATION SCH ×4 (08:38→20:05)
[2023-05-01] MEDS: FORMOTEROL FUMARATE 20 MCG/2 ML NEBU INHALATION SCH ×2 (08:38→20:04)
[2023-05-01] MEDS: ENOXAPARIN 40 MG/0.4 ML SYRINGE SQ SCH (08:49)
[2023-05-01] MEDS: SENNOSIDES 8.6 MG TAB PO SCH (11:58)
[2023-05-01 12:17] LABS: Glucose,Whole Blood 154 mg/dL (70-110)
--- NOTE | 2023-05-01 13:58 | P.PN ---
Subjective Progress Note Date: 05/01/23 On 04/30/2023, I'm seeing the patient in the emergency. The patient is hospitalized however she doesn't have a hospital bed yet. She was admitted for acute asthma exacerbation. She has severe persistent bronchial asthma and she has been maintained on Trelegy Ellipta on outpatient basis. She failed out patient therapy and she ended up in the hospital. She came into the emergency department approximately 48 hours ago. No chills. No fever. No leukocytosis. She is currently on room air oxygen. She continues to be bronchospastic and wheezy and she continues to have a congestive cough, unable to bring up much of sputum. I reviewed her labs. Nothing significant. Pro-calcitonin level has been low and the chest x-ray is not showing any acute abnormalities. On 05/01/2023, the patient is feeling better. The patient is less short of breath compared to yesterday. She is on Pulmicort Respules. She is also on DuoNeb of chest pain she is on IV Solu-Medrol. Chest tightness and wheezing is subsiding gradually. No no other new complaints for the time being. No major side effects related to steroid intake. No evidence of any pneumonia. No antibiotics. Objective - Vital Signs Vital signs: Vital Signs Temp 97.5 F L 05/01/23 08:10 Pulse 70 05/01/23 11:49 Resp 18 05/01/23 08:10 BP 112/75 05/01/23 08:10 Pulse Ox 95 05/01/23 08:10 FiO2 Intake & Output 04/30/23 05/01/23 05/01/23 18:59 06:59 18:59 Intake Total 118 Balance 118 Intake: Oral 118 Other: Voiding Method Toilet # Voids 2 - Exam GENERAL EXAM: Alert, active, pleasant 57-year-old female, on room air, comfortable in no apparent distress. HEAD: Normocephalic. EYES: Normal reaction of pupils, equal size. NOSE: Clear with pink turbinates. THROAT: No erythema or exudates. NECK: No masses, no JVD. CHEST: No chest wall deformity. LUNGS: Equal air entry with no crackles, wheeze, rhonchi or dullness. CVS: S1 and S2 normal with no audible murmur, regular rhythm. ABDOMEN: No hepatosplenomegaly, normal bowel sounds, no guarding or rigidity. SPINE: No scoliosis or deformity SKIN: No rashes CENTRAL NERVOUS SYSTEM: No focal deficits, tone is normal in all 4 extremities. EXTREMITIES: There is no peripheral edema. No clubbing, no cyanosis. Peripheral pulses are intact. - Labs CBC & Chem 7: 04/29/23 09:50 04/29/23 09:50 Labs: Abnormal Lab Results - Last 24 Hours (Table) 04/30/23 04/30/23 04/30/23 Range/Units 12:18 17:45 22:14 POC Glucose (mg/dL) 213 H 159 H 164 H (70-110) mg/dL 05/01/23 Range/Units 05:38 POC Glucose (mg/dL) 163 H (70-110) mg/dL Assessment and Plan Plan: Severe persistent bronchial asthma with previous hospitalizations for the same. The patient is coming in with an acute bronchitis and asthma exacerbation. Note that her chest x-ray is clear. No significant leukocytosis. Pro-calcitonin level is nonelevated. She is a nonsmoker. She has limited on Trelegy Ellipta on outpatient basis. She has failed systemic steroids and she ended up in a hospital. The patient is currently being admitted for bronchodilator treatments and IV steroids. The patient is despite treatment. Shortness of breath secondary to above, improving Cough chest that is obese secondary to above, improving Hypertension Lifetime nonsmoker Body mass index of 46.4 Covid 19 infection back in January 2023 and a repeat viral screen came back negative for influenza, Covid 19 and RSV. Plan Clinically improving and we'll continue same treatment. The patient is a spines IV Solu-Medrol and the patient will be kept on the same [facility] Continue performance on [facility] Continue IV Solu-Medrol at a dose of 60 mg IV push every 6 hours Lovenox for DVT prophylaxis May be a good candidate for biologic on outpatient basis and should be considered for either Dupixent or Fasenra and this needs to be discussed with a gsa coordinator once she leaves the hospital. We'll continue to follow
--- NOTE | 2023-05-01 16:06 | P.PN ---
Subjective Progress Note Date: 05/01/23 Hospital Course: 57-year-old female with a PMH of asthma and hypertension who presents to the [facility] room with complaint of shortness of breath and nonproductive cough. In the emergency room a chest x-ray was unremarkable. EKG reveals sinus rhythm at 72 bpm with T-wave inversion in lead [address]/T-wave changes. Laboratory evaluation was remarkable for CO2 16, BUN 18, glucose 200, and troponin less than 0.012. Patient being admitted for acute asthma exacerbation, started on bronchodilators and IV steroids, pulmonology consulted. Subjective: Patient seen and examined at bedside. No acute events overnight. He feels slightly improved but still requiring oxygen at times. Having difficulty ambulating due to shortness of breath. Pertinent positives and negatives as discussed above, a complete review of systems was performed and all other systems are negative. Vitals Signs Reviewed. General: nontoxic, in mild respiratory distress, appears at stated age, obese Derm: warm, dry Head: atraumatic, normocephalic, symmetric Eyes: EOMI, no lid lag, anicteric sclera Mouth: no lip lesion, mucus membranes moist Cardiovascular: S1S2 reg, no murmur Lungs: CTA bilateral, no rhonchi, no rales , no accessory muscle use Abdominal: soft, nontender to palpation, no guarding, no appreciable organomegaly Ext: no gross muscle atrophy, no edema, no contractures Neuro: CN II-XI grossly intact, no focal neuro deficits Psych: Alert, oriented, appropriate affect Data Reviewed Today: Pertinent Labs: Blood sugars range between 154-164 Imaging: No new imaging Assessment and Plan: Acute asthma exacerbation Acute hypoxic respiratory failure -DuoNeb scheduled and as needed, on Pulmicort twice a day, Perforomist twice a day -IV Solu-Medrol 60 every 6 hours, monitor blood sugars and mentation -Pulmonology note reviewed, continue current management, likely need Biologics as outpatient. Hyperglycemia, steroid induced -Sliding scale insulin, monitor for hypoglycemia Hypertension -Continue losartan 150 mg DVT ppx: Lovenox Code status: Full code Anticipated discharge place: home Anticipated discharge time: likely tomorrow Patient failed observation status due to persistent hypoxic respiratory failure and requiring IV steroids. Status being changed inpatient. Objective - Vital Signs Vital signs: Vital Signs Temp 97.7 F 01/16/24 15:10 Pulse 77 05/01/23 15:10 Resp 16 05/01/23 15:10 BP 134/75 05/01/23 15:10 Pulse Ox 95 05/01/23 15:10 FiO2 Intake & Output 04/30/23 05/01/23 05/01/23 18:59 06:59 18:59 Intake Total 456 Balance 456 Intake: Oral 456 Other: Voiding Method Toilet # Voids 2 2 - Labs CBC & Chem 7: 04/29/23 09:50 04/29/23 09:50 Labs: Abnormal Lab Results - Last 24 Hours (Table) 04/30/23 04/30/23 05/01/23 Range/Units 17:45 22:14 05:38 POC Glucose (mg/dL) 159 H 164 H 163 H (70-110) mg/dL 05/01/23 Range/Units 12:15 POC Glucose (mg/dL) 154 H (70-110) mg/dL
[2023-05-01 17:26] LABS: Glucose,Whole Blood 205 mg/dL (70-110)
[2023-05-01] MEDS: LOSARTAN 50 MG TAB PO SCH (22:01)
[2023-05-01 22:08] LABS: Glucose,Whole Blood 219 mg/dL (70-110)
[2023-05-02] MEDS: IPRATROPIUM-ALBUTEROL 3 ML NEB INHALATION PRN ×2 (00:44→04:55)
[2023-05-02 06:04] LABS: Glucose,Whole Blood 169 mg/dL (70-110)
[2023-05-02] MEDS: INSULIN ASPART (NovoLOG) 100 UNIT/ML VIAL SQ SCH ×4 (06:14→21:26)
[2023-05-02] MEDS: methylPREDNISolone SOD SUCCI 125 MG/2 ML VIAL IV SCH ×3 (06:14→18:43)
[2023-05-02] MEDS: FORMOTEROL FUMARATE 20 MCG/2 ML NEBU INHALATION SCH ×2 (08:31→20:06)
[2023-05-02] MEDS: IPRATROPIUM-ALBUTEROL 3 ML NEB INHALATION SCH ×4 (08:31→20:06)
[2023-05-02] MEDS: BUDESONIDE 1 MG/2 ML NEBU INHALATION SCH ×2 (08:31→20:06)
[2023-05-02] MEDS: ENOXAPARIN 40 MG/0.4 ML SYRINGE SQ SCH (09:46)
[2023-05-02] MEDS: SENNOSIDES 8.6 MG TAB PO SCH (09:46)
[2023-05-02 11:42] LABS: Glucose,Whole Blood 295 mg/dL (70-110)
--- NOTE | 2023-05-02 15:24 | P.PN ---
Subjective Progress Note Date: 05/02/23 On 04/30/2023, I'm seeing the patient in the emergency. The patient is hospitalized however she doesn't have a hospital bed yet. She was admitted for acute asthma exacerbation. She has severe persistent bronchial asthma and she has been maintained on Trelegy Ellipta on outpatient basis. She failed out patient therapy and she ended up in the hospital. She came into the emergency department approximately 48 hours ago. No chills. No fever. No leukocytosis. She is currently on room air oxygen. She continues to be bronchospastic and wheezy and she continues to have a congestive cough, unable to bring up much of sputum. I reviewed her labs. Nothing significant. Pro-calcitonin level has been low and the chest x-ray is not showing any acute abnormalities. On 05/01/2023, the patient is feeling better. The patient is less short of breath compared to yesterday. She is on Pulmicort Respules. She is also on DuoNeb of chest pain she is on IV Solu-Medrol. Chest tightness and wheezing is subsiding gradually. No no other new complaints for the time being. No major side effects related to steroid intake. No evidence of any pneumonia. No antibiotics. On today's evaluation of 05/02/2023, the patient is slowly improving. She still not fully recovered and she is still requiring IV Solu-Medrol. She continued to have cough and exertional dyspnea. Wheezing has subsided. No other new complaints otherwise for now. She is on room air oxygen with a pulse ox of 95%. She's afebrile. Blood sugars are slightly elevated related to steroid intake Objective - Vital Signs Vital signs: Vital Signs Temp 98.2 F 05/02/23 07:15 Pulse 84 05/02/23 09:01 Resp 24 05/02/23 08:00 BP 112/67 05/02/23 07:15 Pulse Ox 95 05/02/23 07:15 FiO2 Intake & Output 05/01/23 05/02/23 05/02/23 18:59 06:59 18:59 Intake Total 1046 120 Balance 1046 120 Intake: Oral 1046 120 Other: Voiding Method Toilet # Voids 2 1 - Exam GENERAL EXAM: Alert, active, pleasant 57-year-old female, on room air, comfortable in no apparent distress. HEAD: Normocephalic. EYES: Normal reaction of pupils, equal size. NOSE: Clear with pink turbinates. THROAT: No erythema or exudates. NECK: No masses, no JVD. CHEST: No chest wall deformity. LUNGS: Equal air entry with no crackles, wheeze, rhonchi or dullness. CVS: S1 and S2 normal with no audible murmur, regular rhythm. ABDOMEN: No hepatosplenomegaly, normal bowel sounds, no guarding or rigidity. SPINE: No scoliosis or deformity SKIN: No rashes CENTRAL NERVOUS SYSTEM: No focal deficits, tone is normal in all 4 extremities. EXTREMITIES: There is no peripheral edema. No clubbing, no cyanosis. Periphe ral pulses are intact. - Labs CBC & Chem 7: 04/29/23 09:50 04/29/23 09:50 Labs: Abnormal Lab Results - Last 24 Hours (Table) 05/01/23 05/01/23 05/01/23 Range/Units 12:15 17:25 22:05 POC Glucose (mg/dL) 154 H 205 H 219 H (70-110) mg/dL 05/02/23 Range/Units 06:03 POC Glucose (mg/dL) 169 H (70-110) mg/dL Assessment and Plan Plan: Severe persistent bronchial asthma with previous hospitalizations for the same. The patient is coming in with an acute bronchitis and asthma exacerbation. Note that her chest x-ray is clear. No significant leukocytosis. Pro-calcitonin level is nonelevated. She is a nonsmoker. She has limited on Trelegy Ellipta on outpatient basis. She has failed systemic steroids and she ended up in a hospital. The patient is currently being admitted for bronchodilator treatments and IV steroids. The patient is despite treatment. Shortness of breath secondary to above, improving Cough chest that is obese secondary to above, improving Hypertension Lifetime nonsmoker Body mass index of 46.4 Covid 19 infection back in January 2023 and a repeat viral screen came back negative for influenza, Covid 19 and RSV. Plan Slow but ongoing improvement and the patient continues to have some residual exertional dyspnea and cough Continue IV Solu-Medrol for another 24 hours at the same doses Continue DuoNeb [facility] Continue performance on Pulmicort [facility] Lovenox for DVT prophylaxis May be a good candidate for biologic on outpatient basis and should be considered for either Dupixent or Fasenra and this needs to be discussed with a car installations supervisor once she leaves the hospital. We'll continue to follow
--- NOTE | 2023-05-02 15:38 | P.PN ---
Subjective Progress Note Date: 05/02/23 Hospital Course: 57-year-old female with a PMH of asthma and hypertension who presents to the [facility] room with complaint of shortness of breath and nonproductive cough. In the emergency room a chest x-ray was unremarkable. EKG reveals sinus rhythm at 72 bpm with T-wave inversion in lead [address]/T-wave changes. Laboratory evaluation was remarkable for CO2 16, BUN 18, glucose 200, and troponin less than 0.012. Patient being admitted for acute asthma exacerbation, started on bronchodilators and IV steroids, pulmonology consulted. Slowly improving. Subjective: Patient seen and examined at bedside. No acute events overnight. He feels slightly improved but still requiring oxygen at times. Having difficulty ambulating due to shortness of breath. Pertinent positives and negatives as discussed above, a complete review of systems was performed and all other systems are negative. Vitals Signs Reviewed. General: nontoxic, in mild respiratory distress, appears at stated age, obese Derm: warm, dry Head: atraumatic, normocephalic, symmetric Eyes: EOMI, no lid lag, anicteric sclera Mouth: no lip lesion, mucus membranes moist Cardiovascular: S1S2 reg, no murmur Lungs: CTA bilateral, no rhonchi, no rales , no accessory muscle use Abdominal: soft, nontender to palpation, no guarding, no appreciable organomegaly Ext: no gross muscle atrophy, no edema, no contractures Neuro: CN II-XI grossly intact, no focal neuro deficits Psych: Alert, oriented, appropriate affect Data Reviewed Today: Pertinent Labs: Blood sugars range between 160 12/16/2094 Imaging: No new imaging Assessment and Plan: Acute asthma exacerbation Acute hypoxic respiratory failure -DuoNeb scheduled and as needed, on Pulmicort twice a day, Perforomist twice a day -IV Solu-Medrol 60 every 6 hours, monitor blood sugars and mentation -Pulmonology note reviewed, continue current management, continue IV steroids for another 24 hours, likely need Biologics as outpatient. Hyperglycemia, steroid induced -Sliding scale insulin, monitor for hypoglycemia Hypertension -Continue losartan 150 mg DVT ppx: Lovenox Code status: Full code Anticipated discharge place: home Anticipated discharge time: likely tomorrow Objective - Vital Signs Vital signs: Vital Signs Temp 97.3 F L 05/02/23 14:00 Pulse 75 05/02/23 14:00 Resp 18 05/02/23 14:00 BP 126/68 05/02/23 14:00 Pulse Ox 95 05/02/23 14:00 FiO2 Intake & Output 05/01/23 05/02/23 05/02/23 18:59 06:59 18:59 Intake Total 1046 360 Balance 1046 360 Intake: Oral 1046 360 Other: Voiding Method Toilet # Voids 2 1 1 - Labs CBC & Chem 7: 04/29/23 09:50 04/29/23 09:50 Labs: Abnormal Lab Results - Last 24 Hours (Table) 05/01/23 05/01/23 05/02/23 Range/Units 17:25 22:05 06:03 POC Glucose (mg/dL) 205 H 219 H 169 H (70-110) mg/dL 05/02/23 Range/Units 11:37 POC Glucose (mg/dL) 295 H (70-110) mg/dL
[2023-05-02 17:27] LABS: Glucose,Whole Blood 144 mg/dL (70-110)
[2023-05-02 20:58] LABS: Glucose,Whole Blood 260 mg/dL (70-110)
[2023-05-02] MEDS: LOSARTAN 50 MG TAB PO SCH (21:25)
[2023-05-03] MEDS: methylPREDNISolone SOD SUCCI 125 MG/2 ML VIAL IV SCH ×4 (00:07→18:59)
[2023-05-03] MEDS: IPRATROPIUM-ALBUTEROL 3 ML NEB INHALATION PRN (01:07)
[2023-05-03 06:09] LABS: Glucose,Whole Blood 173 mg/dL (70-110)
[2023-05-03] MEDS: INSULIN ASPART (NovoLOG) 100 UNIT/ML VIAL SQ SCH ×4 (06:24→20:19)
[2023-05-03] MEDS: IPRATROPIUM-ALBUTEROL 3 ML NEB INHALATION SCH ×4 (07:18→18:00)
[2023-05-03] MEDS: BUDESONIDE 1 MG/2 ML NEBU INHALATION SCH ×2 (07:18→18:00)
[2023-05-03] MEDS: FORMOTEROL FUMARATE 20 MCG/2 ML NEBU INHALATION SCH ×2 (07:18→18:12)
[2023-05-03] MEDS: ENOXAPARIN 40 MG/0.4 ML SYRINGE SQ SCH (10:35)
[2023-05-03] MEDS: SENNOSIDES 8.6 MG TAB PO SCH (11:28)
[2023-05-03 12:25] LABS: Glucose,Whole Blood 141 mg/dL (70-110)
[2023-05-03 14:38] VITALS: BMI 44.1
--- NOTE | 2023-05-03 16:19 | P.PN ---
Subjective Progress Note Date: 05/03/23 On 04/30/2023, I'm seeing the patient in the emergency. The patient is hospitalized however she doesn't have a hospital bed yet. She was admitted for acute asthma exacerbation. She has severe persistent bronchial asthma and she has been maintained on Trelegy Ellipta on outpatient basis. She failed out patient therapy and she ended up in the hospital. She came into the emergency department approximately 48 hours ago. No chills. No fever. No leukocytosis. She is currently on room air oxygen. She continues to be bronchospastic and wheezy and she continues to have a congestive cough, unable to bring up much of sputum. I reviewed her labs. Nothing significant. Pro-calcitonin level has been low and the chest x-ray is not showing any acute abnormalities. On 05/01/2023, the patient is feeling better. The patient is less short of breath compared to yesterday. She is on Pulmicort Respules. She is also on DuoNeb of chest pain she is on IV Solu-Medrol. Chest tightness and wheezing is subsiding gradually. No no other new complaints for the time being. No major side effects related to steroid intake. No evidence of any pneumonia. No antibiotics. On today's evaluation of 05/02/2023, the patient is slowly improving. She still not fully recovered and she is still requiring IV Solu-Medrol. She continued to have cough and exertional dyspnea. Wheezing has subsided. No other new complaints otherwise for now. She is on room air oxygen with a pulse ox of 95%. She's afebrile. Blood sugars are slightly elevated related to steroid intake On 05/03/2023 the patient shows ongoing but slow improvement. She still is having episodes of cough and she is quite anxious. She is on room air oxygen with a pulse ox of 96%. She remains on IV Solu-Medrol in addition to bronchodilators. No other new complaints otherwise for now. Objective - Vital Signs Vital signs: Vital Signs Temp 97.6 F 05/03/23 14:00 Pulse 74 05/03/23 15:58 Resp 20 05/03/23 14:00 BP 138/71 05/03/23 14:00 Pulse Ox 96 05/03/23 14:00 FiO2 Intake & Output 05/02/23 05/03/23 05/03/23 18:59 06:59 18:59 Intake Total 600 160 Balance 600 160 Weight 131.542 kg Intake: Oral 600 160 Other: # Voids 1 2 - Exam GENERAL EXAM: Alert, active, pleasant 57-year-old female, on room air, comfortable in no apparent distress. Patient is currently on room air oxygen HEAD: Normocephalic. EYES: Normal reaction of pupils, equal size. NOSE: Clear with pink turbinates. THROAT: No erythema or exudates. NECK: No masses, no JVD. CHEST: No chest wall deformity. LUNGS: Equal air entry with no crackles, wheeze, rhonchi or dullness. CVS: S1 and S2 normal with no audible murmur, regular rhythm. ABDOMEN: No hepatosplenomegaly, normal bowel sounds, no guarding or rigidity. SPINE: No scoliosis or deformity SKIN: No rashes CENTRAL NERVOUS SYSTEM: No focal deficits, tone is normal in all 4 extremities. EXTREMITIES: There is no peripheral edema. No clubbing, no cyanosis. Peripheral pulses are intact. - Labs CBC & Chem 7: 04/29/23 09:50 04/29/23 09:50 Labs: Abnormal Lab Results - Last 24 Hours (Table) 05/02/23 05/02/23 05/03/23 Range/Units 17:24 20:56 06:07 POC Glucose (mg/dL) 144 H 260 H 173 H (70-110) mg/dL 05/03/23 Range/Units 12:22 POC Glucose (mg/dL) 141 H (70-110) mg/dL Assessment and Plan Plan: Severe persistent bronchial asthma with previous hospitalizations for the same. The patient is coming in with an acute bronchitis and asthma exacerbation. Note that her chest x-ray is clear. No significant leukocytosis. Pro-calcitonin level is nonelevated. She is a nonsmoker. She has limited on Trelegy Ellipta on outpatient basis. She has failed systemic steroids and she ended up in a hospital. The patient is currently being admitted for bronchodilator treatments and IV steroids. The patient is despite treatment. Shortness of breath secondary to above, improving Cough chest that is obese secondary to above, improving Hypertension Lifetime nonsmoker Body mass index of 46.4 Covid 19 infection back in January 2023 and a repeat viral screen came back negative for influenza, Covid 19 and RSV. Plan Improved while being treated on bronchodilators and steroids Not completely recovered. Nevertheless, the patient may finish her treatment with prednisone burst taper on outpatient basis and I'm in favor of discharging her as long as the patient is comfortable with her discharge. Consider Dionne Garciata on outpatient basis Patient has a DuoNeb updraft to be utilized on outpatient basis Lovenox for DVT prophylaxis May be a good candidate for biologic on outpatient basis and should be considered for either Dupmelissa or Amauryra and this needs to be discussed with a wide area network systems administrator once she leaves the hospital. We'll continue to follow
--- NOTE | 2023-05-03 17:04 | P.PN ---
Subjective Progress Note Date: 05/03/23 No new complaints. Pt reports improvement, but still a bit dyspneic. On room air. No wheezing on exam. General: nontoxic, in mild respiratory distress, appears at stated age, obese Derm: warm, dry Head: atraumatic, normocephalic, symmetric Eyes: EOMI, no lid lag, anicteric sclera Mouth: no lip lesion, mucus membranes moist Cardiovascular: S1S2 reg, no murmur Lungs: CTA bilateral, no rhonchi, no rales , no accessory muscle use Abdominal: soft, nontender to palpation, no guarding, no appreciable or ganomegaly Ext: no gross muscle atrophy, no edema, no contractures Neuro: CN II-XI grossly intact, no focal neuro deficits Psych: Alert, oriented, appropriate affect Hospital Course: 57-year-old female with a PMH of asthma and hypertension who presents to the emergency room with complaint of shortness of breath and nonproductive cough. In the emergency room a chest x-ray was unremarkable. EKG reveals sinus rhythm at 72 bpm with T-wave inversion in lead [address]/T-wave changes. Laboratory evaluation was remarkable for CO2 16, BUN 18, glucose 200, and troponin less than 0.012. Patient being admitted for acute asthma exacerbation, started on bronchodilators and IV steroids, pulmonology consulted. Slowly improving. Assessment and Plan: Acute asthma exacerbation Acute hypoxic respiratory failure -DuoNeb scheduled and as needed, on Pulmicort twice a day, Perforomist twice a day -IV Solu-Medrol 60 every 6 hours, monitor blood sugars and mentation -Pulmonology note reviewed, continue current management, continue IV steroids for another 24 hours, likely need Biologics as outpatient. Hyperglycemia, steroid induced -Sliding scale insulin, monitor for hypoglycemia Hypertension -Continue losartan 150 mg DVT ppx: Lovenox Code status: Full code Anticipated discharge place: home Anticipated discharge time: likely tomorrow Objective - Vital Signs Vital signs: Vital Signs Temp 97.6 F 05/03/23 14:00 Pulse 74 05/03/23 15:58 Resp 20 05/03/23 14:00 BP 138/71 05/03/23 14:00 Pulse Ox 96 05/03/23 14:00 FiO2 Intake & Output 05/02/23 05/03/23 05/03/23 18:59 06:59 18:59 Intake Total 600 160 Balance 600 160 Weight 131.542 kg Intake: Oral 600 160 Other: # Voids 1 2 - Labs CBC & Chem 7: 04/29/23 09:50 04/29/23 09:50 Labs: Abnormal Lab Results - Last 24 Hours (Table) 05/02/23 05/02/23 05/03/23 Range/Units 17:24 20:56 06:07 POC Glucose (mg/dL) 144 H 260 H 173 H (70-110) mg/dL 05/03/23 Range/Units 12:22 POC Glucose (mg/dL) 141 H (70-110) mg/dL
[2023-05-03 17:43] LABS: Glucose,Whole Blood 154 mg/dL (70-110)
[2023-05-03 20:13] LABS: Glucose,Whole Blood 259 mg/dL (70-110)
[2023-05-03] MEDS: LOSARTAN 50 MG TAB PO SCH (20:18)
[2023-05-04] MEDS: methylPREDNISolone SOD SUCCI 125 MG/2 ML VIAL IV SCH ×2 (00:39→05:42)
[2023-05-04] MEDS: IPRATROPIUM-ALBUTEROL 3 ML NEB INHALATION PRN (01:10)
[2023-05-04 06:09] LABS: Glucose,Whole Blood 180 mg/dL (70-110)
[2023-05-04] MEDS: INSULIN ASPART (NovoLOG) 100 UNIT/ML VIAL SQ SCH (06:22)
[2023-05-04] MEDS: SENNOSIDES 8.6 MG TAB PO SCH (08:26)
[2023-05-04] MEDS: ENOXAPARIN 40 MG/0.4 ML SYRINGE SQ SCH (08:26)
[2023-05-04] MEDS: FORMOTEROL FUMARATE 20 MCG/2 ML NEBU INHALATION SCH (08:39)
[2023-05-04] MEDS: IPRATROPIUM-ALBUTEROL 3 ML NEB INHALATION SCH (08:39)
[2023-05-04] MEDS: BUDESONIDE 1 MG/2 ML NEBU INHALATION SCH (08:39)
[2023-05-04 09:17] VITALS: PULSE 61
[2023-05-04 09:18] VITALS: BP 133/78; RESP 18; TEMP 97.3
--- NOTE | 2023-05-04 16:58 | P.DS ---
Providers Date of admission: 04/28/23 17:57 Expected date of discharge: 05/04/23 Attending physician: Miguel Tee MD Consults: 04/28/23 17:56 Consult Physician Urgent Consulting Provider: Gera Lyman Consult Reason/Comments: asthma exacerbation Do you want consulting provider notified?: Yes Primary care physician: [facility] Course: Acute asthma exacerbation Acute hypoxic respiratory failure Hyperglycemia, steroid induced Hypertension General: nontoxic, in mild respiratory distress, appears at stated age, obese Derm: warm, dry Head: atraumatic, normocephalic, symmetric Eyes: EOMI, no lid lag, anicteric sclera Mouth: no lip lesion, mucus membranes moist Cardiovascular: S1S2 reg, no murmur Lungs: CTA bilateral, no rhonchi, no rales , no accessory muscle use Abdominal: soft, nontender to palpation, no guarding, no appreciable organomegaly Ext: no gross muscle atrophy, no edema, no contractures Neuro: CN II-XI grossly intact, no focal neuro deficits Psych: Alert, oriented, appropriate affect Hospital Course: 57-year-old female with a PMH of asthma and hypertension who presents to the emergency room with complaint of shortness of breath and nonproductive cough. In the emergency room a chest x-ray was unremarkable. EKG reveals sinus rhythm at 72 bpm with T-wave inversion in lead [address]/T-wave changes. Laboratory evaluation was remarkable for CO2 16, BUN 18, glucose 200, and troponin less than 0.012. Patient being admitted for acute asthma exacerbation, started on bronchodilators and IV steroids, pulmonology consulted. Pt improved back to baseline. Discharged with prednisone taper and pulmonology f/u. I spent 34 minutes coordinating this discharge on 05/04 Patient Condition at Discharge: Good Plan - Discharge Summary Discharge Rx Participant: No New Discharge Prescriptions: New predniSONE [Deltasone] See Rx Instructions .ROUTE .COMPLEX #34 tab Continue Olmesartan Medoxomil [Benicar] 40 mg PO HS Diclofenac Sodium [Voltaren] 75 mg PO BID Albuterol Sulfate [Albuterol Sulfate Hfa] 2 puff INHALATION RT-Q6H PRN PRN Reason: Shortness Of Breath Ipratropium-Albuterol Nebulize [Duoneb 0.5 mg-3 mg/3 ml Soln] 3 ml INHALATION RT-QID Fluticasone/Umeclidin/Vilanter [Trelegy Ellipta 200-62.5-25] 1 puff INHALATION RT-DAILY Discontinued predniSONE See Taper PO DIRECTED Discharge Medication List Olmesartan Medoxomil [Benicar] 40 mg PO HS 07/15/15 [History] Albuterol Sulfate [Albuterol Sulfate Hfa] 2 puff INHALATION RT-Q6H PRN 06/16/22 [History] Diclofenac Sodium [Voltaren] 75 mg PO BID 06/16/22 [History] Fluticasone/Umeclidin/Vilanter [Trelegy Ellipta 200-62.5-25] 1 puff INHALATION RT-DAILY 07/21/22 [History] Ipratropium-Albuterol Nebulize [Duoneb 0.5 mg-3 mg/3 ml Soln] 3 ml INHALATION RT-QID 07/21/22 [History] predniSONE [Deltasone] See Rx Instructions .ROUTE .COMPLEX #34 tab 05/03/23 [Rx] Follow up Appointment(s)/Referral(s): Chip Horvath MD [Primary Care Provider] - 1-2 days Gera Lyman DO [Doctor of Osteopathic Medicine] - 05/24/23 3:45 pm Patient Instructions/Handouts: Asthma (DC) Discharge Disposition: HOME SELF-CARE
== END 2023-05-04 11:42 | disposition home or self-care (01) | DRG 202 ==
LOC: EC 14:45 → 6NMEDSUR 17:56 → OBSVTOIN 17:57 → 6NMEDSUR 21:29
PROVIDERS: ADMIT Student in an Organized Health Care Education/Training Program; ATTEND Student in an Organized Health Care Education/Training Program
DX: J45.901 Unspecified asthma with (acute) exacerbation (principal); J96.01 Acute respiratory failure with hypoxia; Z68.41 Body mass index [BMI] 40.0-44.9, adult; E03.9 Hypothyroidism, unspecified; I10 Essential (primary) hypertension; E66.9 Obesity, unspecified; T38.0X5A Adverse effect of glucocorticoids and synthetic analogues, initial encounter; R73.9 Hyperglycemia, unspecified; Z79.899 Other long term (current) drug therapy; Z79.51 Long term (current) use of inhaled steroids; Z79.85 Long-term (current) use of injectable non-insulin antidiabetic drugs; Z88.8 Allergy status to other drugs, medicaments and biological substances; Z11.52 Encounter for screening for COVID-19; Z87.01 Personal history of pneumonia (recurrent); Z87.820 Personal history of traumatic brain injury
CPT/HCPCS: 36415; 36600; 71046; 80053; 82805; 83036; 83880; 84145; 84484; 85025; 85379; 85610; 85730; 87636; 93005; 94640; 94760; 96365; 96366; 96372; 96375; 96376; 99285

== ENCOUNTER → 2023-06-23 | Outpatient (CLI) | payer BC | END | disposition home or self-care (01) | LOC: LABWHC1 11:07 | PROVIDERS: ATTEND Internal Medicine Critical Care Medicine | DX: J45.909 Unspecified asthma, uncomplicated (principal) | CPT/HCPCS: 36415; 85008 ==

== ENCOUNTER → 2024-05-07 | Outpatient (CLI) | payer BC ==
--- NOTE | 2024-05-07 16:02 | CT ---
EXAMINATION TYPE: CT chest abdomen w con DATE OF EXAM: 05/07/2024 3:46 PM COMPARISON: None. CLINICAL INDICATION: Female, 58 years old with history of R91.1 I71.20; PHH, Hx of aortic aneurysm an d colon CA. Technique: CT chest abdomen w con; Multiple axial images were obtained. Two-dimensional coronal and s agittal reconstructions were obtained. Contrast used:100 ml mL of Isovue 300 with IV Contrast, (None if empty) Oral contrast used: with Oral Contrast CT DLP: 2489.4 mGycm, Automated exposure control for dose reduction was used. Findings: CHEST: LUNGS/ PLEURA: No focal consolidation, pneumothorax or pleural effusion. AIRWAY: Patent and unremarkable. HEART: Size within normal limits. MEDIASTINUM: No gross evidence of adenopathy. VASCULATURE: No aortic aneurysm. Ascending thoracic aorta ectasia up to 40 mm. No evidence for aneur ysm or occlusion aree denser filling defect within central pulmonary arterial vasculature. MUSCULOSKELETAL: No acute osseous abnormalities. SOFT TISSUES/LYMPH NODES: Unremarkable. LOWER NECK: No significant findings. ABDOMEN: ABDOMEN LIVER: Diffusely hypoattenuating parenchyma. GALLBLADDER AND BILE DUCTS: Cholecystectomy changes.r PANCREAS: Unremarkable. SPLEEN: Unremarkable. ADRENAL GLANDS: Unremarkable. KIDNEYS AND URETERS: No evidence of hydronephrosis or renal calculus. The ureters are unremarkable. STOMACH AND BOWEL: No evidence of bowel obstruction. Appendix is normal. No abnormal bowel wall thick ening. PERITONEUM/RETROPERITONEUM: No evidence of pneumoperitoneum or free fluid. VASCULATURE: No evidence of aortic aneurysm. MUSCULOSKELETAL: No acute osseous abnormalities. Mild disc degeneration changes are present throughou t the thoracolumbar spine. LYMPH NODES: No gross evidence for lymphadenopathy. SOFT TISSUE/ABDOMINAL WALL: Fat-containing ventral wall hernia. Surgical changes to the anterior wall with mesh thought to be in place. There remains umbilical hernia. IMPRESSION: 1. No evidence for lymphadenopathy or mass. 2. No evidence for aneurysm. Ascending thoracic aorta ectasia up to 40 mm. 3. Hepatic steatosis. 4. Postoperative changes anterior abdominal wall with persistent ventral and umbilical fat-containin g hernias. [facility], , 05/07/2024 4:00 PM
== END | disposition home or self-care (01) ==
LOC: RADCTMAIN 12:41
PROVIDERS: ATTEND Internal Medicine Critical Care Medicine
DX: R91.1 Solitary pulmonary nodule (principal); I71.20 Thoracic aortic aneurysm, without rupture, unspecified; K76.89 Other specified diseases of liver; Z98.890 Other specified postprocedural states; K42.9 Umbilical hernia without obstruction or gangrene; Z85.038 Personal history of other malignant neoplasm of large intestine; Z86.79 Personal history of other diseases of the circulatory system
CPT/HCPCS: 71260; 74160; Q9967